=== PATIENT | female | born 1935 | race Two or more races ===

== ENCOUNTER 2024-05-18 12:03 | Emergency (ER) | payer OTHER ==
[~2024-05-18] VITALS: Ht 154.9 cm; Wt 82.6 kg
[2024-05-18] MEDS ORDERED: ONDANSETRON HCL 2 MG/ML VIAL IV STA (12:27)
[2024-05-18 13:02] LABS: HEMATOCRIT 37.7 % (36.0-45.00); HEMOGLOBIN 12.5 g/dL (12.0-15.00); MEAN CELL VOLUME 98.1 fL (80.00-100.00); MEAN CORPUSCULAR HEMOGLOBIN 32.6 pg (27.00-32.0); MEAN CORPUSCULAR HGB CONC 33.2 g/dl (32.0-36.0); PLATELET COUNT 263 K/uL (150-450); RED BLOOD COUNT 3.84 M/uL (4.00-6.00); RED CELL DISTRIBUTION WIDTH 13.5 % (11.5-14.5)
[2024-05-18] MEDS ORDERED: MORPHINE SULFATE 4 MG/ML CARTRIDGE IV ONE (13:30)
[2024-05-18 14:07] LABS: CALCIUM 9.3 mg/dL (8.5-10.1); CREATININE SERUM 0.82 mg/dL (0.55-1.02); GFR 65.79; POTASSIUM 4.12 mEq/L (3.5-5.1)
[2024-05-18] MEDS ORDERED: ONDANSETRON HCL 2 MG/ML VIAL IV ONE (17:30)
== END 2024-05-18 18:18 | disposition home or self-care (01) ==
LOC: ER 12:03
PROVIDERS: Emergency Medicine
DX: I62.00 Nontraumatic subdural hemorrhage, unspecified (principal); E11.9 Type 2 diabetes mellitus without complications; I10 Essential (primary) hypertension
CPT/HCPCS: 70551

== ENCOUNTER 2024-05-26 10:28 | Inpatient (IN) | payer OTHER ==
[~2024-05-26] VITALS: Ht 162.6 cm; Wt 82.6 kg
--- NOTE | 2024-05-26 10:39 | NUR ---
PACIENTE ALERTA Y ORIENTADA X3 ACOMPANADA DE PERSONAL DE AMBULANCIA LA CUAL REFIERE CAIDA HACE JILLIAN SEMANA Y DESDE ENTONCES PRESENTAR MOVIMIENTOS INVOLUNTARIOS.
[2024-05-26] MEDS ORDERED: PHENYTOIN SODIUM 250 MG/5 ML VIAL IV SCH (10:44)
[2024-05-26] MEDS ORDERED: 0.9 % SODIUM CHLORIDE 1,000 ML IV SCH ×2 (10:45→16:00)
[2024-05-26] MEDS ORDERED: PHENYTOIN SODIUM 100 MG/2 ML VIAL IV SCH (10:58)
--- NOTE | 2024-05-26 11:31 | NUR ---
PTE ALERTA Y ORIENTADA X3 SE LE ORIENTA SOBRE TX MEDICO LO CUAL REFIERE ENTENDER Y ACEPTAR SE LE REALIZA MUESTRAS DE LAB BAJO MEDIDAS ASEPTICAS Y SE LE ADMINISTRA MEDICAMENTO ANJU ORDN MEDICA
[2024-05-26 11:42] LABS: HEMATOCRIT 39.6 % (36.0-45.00); HEMOGLOBIN 13.2 g/dL (12.0-15.00); MEAN CELL VOLUME 96.6 fL (80.00-100.00); MEAN CORPUSCULAR HEMOGLOBIN 32.3 pg (27.00-32.0); MEAN CORPUSCULAR HGB CONC 33.4 g/dl (32.0-36.0); PLATELET COUNT 412 K/uL (150-450); RED CELL DISTRIBUTION WIDTH 13.9 % (11.5-14.5)
[2024-05-26 12:00] LABS: ALBUMIN 3.2 gm/dL (3.4-5.0); BILIRUBIN TOTAL 0.82 mg/dL (0.3-1.2); CALCIUM 9.5 mg/dL (8.5-10.1); CREATININE SERUM 1.18 mg/dL (0.55-1.02); GFR 43.23; GLOBULINA 4.3 G/DL (2.4-3.5); POTASSIUM 4.25 mEq/L (3.5-5.1); TOTAL PROTEIN 7.5 gm/dL (6.4-8.2)
[2024-05-26 14:47] LABS: URINE APPEARANCE Cloudy; URINE BILIRRUBIN Negative (NEGATIVE); URINE BLOOD Negative; URINE COLOR Yellow; URINE GLUCOSE Negative (NEGATIVE); URINE KETONE Negative (NEGATIVE); URINE LEUKOCYTE Negative; URINE NITRATE Negative; URINE PROTEIN Negative (NEGATIVE)
[2024-05-26 14:49] LABS: URINE BACTERIA 150.5 uL (0.0-1933); URINE EPITHELIAL CELLS 44.9 uL (0.0-38.8); URINE RBC 8.5 uL (0.0-20.8); URINE WBC 2.3 uL (0.0-23.2)
[2024-05-26 15:19] LABS: URINE CAST 0.44 uL (0.0-1.40)
[2024-05-26 15:22] LABS: URINE CRYSTALS NEGATIVE /HPF
--- NOTE | 2024-05-26 15:50 | NUR ---
SE RECIBE FEMINA EN CAMA CON BARANDAS ELEVADAS POR GARCIA SEGUIRDAD Y MONIQUE DE ID. VENOPUNCION PATENTE BAJANDO IV FLUIDS POR REGULADOR. PTE PENDIENTE A CONSULTA CON MEDICINA INTERNA.
[2024-05-26] MEDS ORDERED: INSULIN LISPRO 1,000 UNIT/10 ML UNITS SUBCUTANEO PRN (16:15)
[2024-05-26] MEDS ORDERED: DEXTROSE 50 % IN WATER 0.5 G/ML DISP.SYRIN IV PRN (16:15)
[2024-05-26] MEDS ORDERED: LEVALBUTEROL HCL 0.63 MG/3 ML SOLUTION IH SCH (17:00)
[2024-05-26 17:13] VITALS: BP 90/59; O2SAT 94
[2024-05-26] MEDS ORDERED: LORazepam 2 MG/ML VIAL IV PRN (20:15)
[2024-05-26 22:00] VITALS: BP 132/68
[2024-05-27 02:49] VITALS: BP 156/89; O2SAT 97
[2024-05-27 08:27] VITALS: BP 114/79; O2SAT 90
[2024-05-27 08:47] LABS: HEMATOCRIT 39.9 % (36.0-45.00); HEMOGLOBIN 13.4 g/dL (12.0-15.00); MEAN CELL VOLUME 96.2 fL (80.00-100.00); MEAN CORPUSCULAR HEMOGLOBIN 32.4 pg (27.00-32.0); MEAN CORPUSCULAR HGB CONC 33.6 g/dl (32.0-36.0); PLATELET COUNT 355 K/uL (150-450); RED BLOOD COUNT 4.15 M/uL (4.00-6.00); RED CELL DISTRIBUTION WIDTH 13.8 % (11.5-14.5)
[2024-05-27] MEDS ORDERED: RAMIPRIL 5 MG CAPSULE PO SCH (09:00)
[2024-05-27] MEDS ORDERED: FUROsemide 20 MG/2 ML VIAL IV SCH (09:00)
[2024-05-27 09:09] LABS: INR 1.01; PARTIAL THROMBOPLASTIN TIME 25.7 SECONDS (22.0-34.0)
[2024-05-27] MEDS ORDERED: ACETAMINOPHEN 325 MG TABLET PO PRN (09:30)
[2024-05-27 10:31] LABS: ALBUMIN 2.9 gm/dL (3.4-5.0); BILIRUBIN TOTAL 0.96 mg/dL (0.3-1.2); CHOL HDL RATIO 2.9 (0-5.0); CREATININE SERUM 0.93 mg/dL (0.55-1.02); GFR 56.89; GLOBULINA 3.9 G/DL (2.4-3.5); MAGNESIUM 1.7 mg/dL (1.8-2.4); POTASSIUM 4.83 mEq/L (3.5-5.1); T4 FREE 1.06 NG/ML (0.76-1.46); TOTAL PROTEIN 6.8 gm/dL (6.4-8.2); TSH 1.1 uIU/mL (0.358-3.74)
[2024-05-27] MEDS ORDERED: ACETAMINOPHEN 500 MG GEL..CAP PO SCH (12:00)
[2024-05-27 20:32] VITALS: BP 131/58
[2024-05-27] MEDS ORDERED: DOCUSATE SODIUM 100MG CAP PO SCH (21:00)
[2024-05-27] MEDS ORDERED: GABAPENTIN 300 MG CAPSULE PO SCH (21:00)
[2024-05-28 03:00] VITALS: BP 122/60; O2SAT 92
[2024-05-28 08:00] VITALS: BP 125/73; O2SAT 90
[2024-05-28 09:50] VITALS: O2SAT 92
[2024-05-28] MEDS ORDERED: PHENYTOIN SODIUM 100 MG/2 ML VIAL IV SCH (17:00)
[2024-05-28 18:00] VITALS: BP 132/70; O2SAT 98
[2024-05-29 02:51] VITALS: BP 114/75
[2024-05-29 08:26] VITALS: BP 124/75; O2SAT 99
[2024-05-29] MEDS ORDERED: GLYNASE PO SCH (09:00)
[2024-05-29 17:55] VITALS: BP 114/68
[2024-05-29] MEDS ORDERED: PATIENTS OWN MEDICATION (MEDICAMENTO EN PISO) OP SCH (21:00)
== END 2024-05-29 18:59 | disposition home or self-care (01) | DRG 65 ==
LOC: ER 10:28 → MEDJ 18:13 → SEC-K 18:13 → MEDJ 18:43
PROVIDERS: General Practice; ADMIT Specialist; ATTEND Specialist
PROC: 3E0F7GC Introduction of Other Therapeutic Substance into Respiratory Tract, Via Natural or Artificial Opening (ICD-10-PCS; 2024-05-26)
PROC: B54BZZZ Ultrasonography of Right Lower Extremity Veins (ICD-10-PCS; principal; 2024-05-27)
DX: I60.8 Other nontraumatic subarachnoid hemorrhage (principal); G40.89 Other seizures; I10 Essential (primary) hypertension; E11.9 Type 2 diabetes mellitus without complications; F17.200 Nicotine dependence, unspecified, uncomplicated; R25.9 Unspecified abnormal involuntary movements; Z79.4 Long term (current) use of insulin